=== PATIENT | male | born 1965 | race Caucasian/White ===

== ENCOUNTER 2019-02-20 20:37 | Inpatient (IN) | payer OTHER ==
[~2019-02-20] VITALS: Ht 154.9 cm; Wt 58.5 kg
[2019-02-20 21:00] VITALS: BP 136/78; PULSE 18; RESP 18
[2019-02-20 21:30] VITALS: Ht 154.9 cm; Wt 58.5 kg
[2019-02-20] MEDS ORDERED: HYDROCODONE/APAP (5/325) TAB PO PRN (21:30)
[2019-02-20] MEDS ORDERED: BISACODYL 10 MG SUPP PR PRN (23:00)
[2019-02-20] MEDS ORDERED: ACETAMINOPHEN 325 MG TAB PO PRN (23:00)
[2019-02-20] MEDS ORDERED: LACTULOSE 30ML CUP PO PRN (23:00)
[2019-02-20] MEDS ORDERED: MAGNESIUM HYDROXIDE 30ML CUP PO PRN (23:00)
[2019-02-21 02:00] VITALS: BP 140/79; PULSE 68; RESP 18
[2019-02-21] MEDS ORDERED: ONDANSETRON 4 MG INJ IV PRN (03:30)
[2019-02-21] MEDS ORDERED: NITROGLYCERIN (SL) 0.4 MG TAB SL PRN (03:30)
[2019-02-21 07:00] VITALS: BP 133/63; PULSE 57; RESP 18
[2019-02-21] MEDS: ATORVASTATIN 80 MG TAB PO SCH (08:07)
[2019-02-21] MEDS: AL HYDROX/MG HYDROX/SIMETH 30 ML CUP PO SCH ×4 (08:07→21:27)
[2019-02-21] MEDS: ASPIRIN (EC) 81 MG TAB PO SCH (08:08)
[2019-02-21] MEDS: FLUOXETINE 20 MG CAP PO SCH (08:08)
[2019-02-21] MEDS: DOCUSATE SODIUM 100 MG CAP PO SCH ×2 (08:08→21:27)
[2019-02-21] MEDS: LOSARTAN 50 MG TAB PO SCH (08:11)
[2019-02-21] MEDS: NICOTINE (14 MG/24 HR) PATCH TRANSDERM SCH (08:12)
[2019-02-21] MEDS: POLYETHYLENE GLYCOL 17 GM PACKET PO SCH (08:12)
[2019-02-21] MEDS: AMLODIPINE 5 MG TAB PO SCH (08:13)
[2019-02-21 14:00] VITALS: BP 140/72; PULSE 59; RESP 18
[2019-02-21 19:35] VITALS: BP 127/67; PULSE 59; RESP 18
[2019-02-21] MEDS: FAMOTIDINE 20 MG TAB PO SCH (21:27)
[2019-02-21] MEDS: SENNA TAB PO SCH (21:28)
[2019-02-22 02:19] VITALS: BP 131/69; PULSE 61; RESP 18
[2019-02-22 07:00] VITALS: BP 126/67; PULSE 55; RESP 18
[2019-02-22] MEDS: AL HYDROX/MG HYDROX/SIMETH 30 ML CUP PO SCH ×4 (07:35→20:24)
[2019-02-22] MEDS: FLUOXETINE 20 MG CAP PO SCH (08:19)
[2019-02-22] MEDS: FAMOTIDINE 20 MG TAB PO SCH ×2 (08:19→20:24)
[2019-02-22] MEDS: ATORVASTATIN 80 MG TAB PO SCH (08:20)
[2019-02-22] MEDS: ASPIRIN (EC) 81 MG TAB PO SCH (08:20)
[2019-02-22] MEDS: LOSARTAN 50 MG TAB PO SCH (08:20)
[2019-02-22] MEDS: DOCUSATE SODIUM 100 MG CAP PO SCH ×2 (08:20→20:26)
[2019-02-22] MEDS: POLYETHYLENE GLYCOL 17 GM PACKET PO SCH (08:21)
[2019-02-22] MEDS: AMLODIPINE 5 MG TAB PO SCH (08:21)
[2019-02-22] MEDS: NICOTINE (14 MG/24 HR) PATCH TRANSDERM SCH (08:23)
[2019-02-22 14:00] VITALS: BP 124/80; PULSE 60; RESP 18
[2019-02-22 19:16] VITALS: BP 128/77; PULSE 65; RESP 18
[2019-02-22] MEDS: SENNA TAB PO SCH (20:26)
[2019-02-23 02:19] VITALS: BP 132/68; PULSE 62; RESP 18
[2019-02-23 07:00] VITALS: BP 119/70; PULSE 66; RESP 18
[2019-02-23] MEDS: POLYETHYLENE GLYCOL 17 GM PACKET PO SCH (09:09)
[2019-02-23] MEDS: AL HYDROX/MG HYDROX/SIMETH 30 ML CUP PO SCH ×4 (09:09→21:13)
[2019-02-23] MEDS: FAMOTIDINE 20 MG TAB PO SCH ×2 (09:10→21:13)
[2019-02-23] MEDS: AMLODIPINE 5 MG TAB PO SCH (09:10)
[2019-02-23] MEDS: FLUOXETINE 20 MG CAP PO SCH (09:10)
[2019-02-23] MEDS: ASPIRIN (EC) 81 MG TAB PO SCH (09:10)
[2019-02-23] MEDS: LOSARTAN 50 MG TAB PO SCH (09:10)
[2019-02-23] MEDS: DOCUSATE SODIUM 100 MG CAP PO SCH ×2 (09:11→21:00)
[2019-02-23] MEDS: ATORVASTATIN 80 MG TAB PO SCH (09:11)
[2019-02-23] MEDS: NICOTINE (14 MG/24 HR) PATCH TRANSDERM SCH (09:12)
[2019-02-23 14:00] VITALS: BP 165/79; PULSE 69; RESP 18
[2019-02-23 19:34] VITALS: BP 161/79; PULSE 80; RESP 18
[2019-02-23] MEDS: SENNA TAB PO SCH (21:00)
[2019-02-23] MEDS: CIPROFLOXACIN 500 MG TAB PO SCH (23:53)
[2019-02-24 02:00] VITALS: BP 142/72; PULSE 67; RESP 18
[2019-02-24] MEDS: CIPROFLOXACIN 500 MG TAB PO SCH (06:16)
[2019-02-24 07:30] VITALS: BP 108/59; PULSE 82; RESP 18
[2019-02-24] MEDS: AL HYDROX/MG HYDROX/SIMETH 30 ML CUP PO SCH ×4 (08:04→20:09)
[2019-02-24] MEDS: LOSARTAN 50 MG TAB PO SCH (08:07)
[2019-02-24] MEDS: AMLODIPINE 5 MG TAB PO SCH (08:08)
[2019-02-24] MEDS: DOCUSATE SODIUM 100 MG CAP PO SCH ×2 (08:10→20:09)
[2019-02-24] MEDS: ASPIRIN (EC) 81 MG TAB PO SCH (08:16)
[2019-02-24] MEDS: ATORVASTATIN 80 MG TAB PO SCH (08:16)
[2019-02-24] MEDS: FAMOTIDINE 20 MG TAB PO SCH ×2 (08:16→20:09)
[2019-02-24] MEDS: FLUOXETINE 20 MG CAP PO SCH (08:16)
[2019-02-24] MEDS: NICOTINE (14 MG/24 HR) PATCH TRANSDERM SCH (08:17)
[2019-02-24] MEDS ORDERED: POLYETHYLENE GLYCOL 17 GM PACKET PO PRN (09:00)
[2019-02-24] MEDS ORDERED: PIPER-TAZO 3.375 GM IV (PMX) 100 ML IVPB SCH (12:30)
[2019-02-24] MEDS: TOLTERODINE (SR) 4 MG CAP PO SCH (12:51)
[2019-02-24] MEDS: CEFTRIAXONE 1 GM/NS 50 ML IVPB SCH (13:06)
[2019-02-24 14:00] VITALS: BP 112/66; PULSE 82; RESP 18
[2019-02-24 19:41] VITALS: BP 128/72; PULSE 83; RESP 18
[2019-02-24] MEDS: SENNA TAB PO SCH (20:09)
[2019-02-25 02:54] VITALS: BP 127/74; PULSE 73; RESP 18
[2019-02-25 07:00] VITALS: BP 119/69; PULSE 76; RESP 18
[2019-02-25] MEDS: AL HYDROX/MG HYDROX/SIMETH 30 ML CUP PO SCH ×4 (08:22→21:02)
[2019-02-25] MEDS: DOCUSATE SODIUM 100 MG CAP PO SCH ×2 (09:00→21:00)
[2019-02-25] MEDS: TOLTERODINE (SR) 4 MG CAP PO SCH (09:02)
[2019-02-25] MEDS: ASPIRIN (EC) 81 MG TAB PO SCH (09:02)
[2019-02-25] MEDS: LOSARTAN 50 MG TAB PO SCH (09:02)
[2019-02-25] MEDS: AMLODIPINE 5 MG TAB PO SCH (09:02)
[2019-02-25] MEDS: ATORVASTATIN 80 MG TAB PO SCH (09:03)
[2019-02-25] MEDS: FAMOTIDINE 20 MG TAB PO SCH ×2 (09:03→21:02)
[2019-02-25] MEDS: FLUOXETINE 20 MG CAP PO SCH (09:03)
[2019-02-25] MEDS: NICOTINE (14 MG/24 HR) PATCH TRANSDERM SCH (09:04)
[2019-02-25] MEDS: CEFTRIAXONE 1 GM/NS 50 ML IVPB SCH (12:51)
[2019-02-25 14:00] VITALS: BP 116/63; PULSE 83; RESP 18
[2019-02-25 20:00] VITALS: BP 120/68; PULSE 76; RESP 18
[2019-02-25] MEDS: SENNA TAB PO SCH (21:00)
[2019-02-26 02:00] VITALS: BP 113/60; PULSE 71; RESP 18
[2019-02-26] MEDS: AL HYDROX/MG HYDROX/SIMETH 30 ML CUP PO SCH ×4 (06:48→21:00)
[2019-02-26 07:00] VITALS: BP 123/72; PULSE 64; RESP 18
[2019-02-26] MEDS: FLUOXETINE 20 MG CAP PO SCH (08:40)
[2019-02-26] MEDS: NICOTINE (14 MG/24 HR) PATCH TRANSDERM SCH (08:40)
[2019-02-26] MEDS: FAMOTIDINE 20 MG TAB PO SCH ×2 (08:40→20:35)
[2019-02-26] MEDS: TOLTERODINE (SR) 4 MG CAP PO SCH (08:40)
[2019-02-26] MEDS: ASPIRIN (EC) 81 MG TAB PO SCH (08:41)
[2019-02-26] MEDS: AMLODIPINE 5 MG TAB PO SCH (08:41)
[2019-02-26] MEDS: LOSARTAN 50 MG TAB PO SCH (08:41)
[2019-02-26] MEDS: DOCUSATE SODIUM 100 MG CAP PO SCH ×2 (08:42→21:00)
[2019-02-26] MEDS: CEFTRIAXONE 1 GM/NS 50 ML IVPB SCH (12:49)
[2019-02-26 14:00] VITALS: BP 104/55; PULSE 83; RESP 18
[2019-02-26 20:00] VITALS: BP 136/71; PULSE 77; RESP 18
[2019-02-26] MEDS: SENNA TAB PO SCH (21:00)
[2019-02-27 02:25] VITALS: BP 132/60; PULSE 62; RESP 18
[2019-02-27 07:00] VITALS: BP_SYST 129; BP_SYST 157; BP_DIAS 67; BP_DIAS 70; PULSE 62; RESP 18
[2019-02-27] MEDS: AL HYDROX/MG HYDROX/SIMETH 30 ML CUP PO SCH ×4 (07:05→20:22)
[2019-02-27] MEDS: DOCUSATE SODIUM 100 MG CAP PO SCH ×2 (08:33→20:22)
[2019-02-27 08:44] VITALS: BP 124/72; PULSE 67; RESP 18
[2019-02-27] MEDS: TOLTERODINE (SR) 4 MG CAP PO SCH (08:51)
[2019-02-27] MEDS: LOSARTAN 50 MG TAB PO SCH (08:51)
[2019-02-27] MEDS: FLUOXETINE 20 MG CAP PO SCH (08:51)
[2019-02-27] MEDS: FAMOTIDINE 20 MG TAB PO SCH ×2 (08:52→20:21)
[2019-02-27] MEDS: MULTIVITAMINS THERAPEUTIC TAB PO SCH (08:52)
[2019-02-27] MEDS: ASPIRIN (EC) 81 MG TAB PO SCH (08:52)
[2019-02-27] MEDS: AMLODIPINE 5 MG TAB PO SCH (08:52)
[2019-02-27] MEDS: NICOTINE (14 MG/24 HR) PATCH TRANSDERM SCH (08:52)
[2019-02-27] MEDS: CEFTRIAXONE 1 GM/NS 50 ML IVPB SCH (12:33)
[2019-02-27 14:00] VITALS: BP 127/74; PULSE 88; RESP 18
[2019-02-27 19:23] VITALS: BP 128/70; PULSE 77; RESP 18
[2019-02-27] MEDS: SENNA TAB PO SCH (20:22)
[2019-02-28 03:14] VITALS: BP 125/68; PULSE 82; RESP 18
[2019-02-28] MEDS: AL HYDROX/MG HYDROX/SIMETH 30 ML CUP PO SCH ×4 (07:05→20:12)
[2019-02-28 08:03] VITALS: BP 119/68; PULSE 62; RESP 18
[2019-02-28] MEDS: NICOTINE (14 MG/24 HR) PATCH TRANSDERM SCH (08:46)
[2019-02-28] MEDS: FAMOTIDINE 20 MG TAB PO SCH ×2 (08:47→20:03)
[2019-02-28] MEDS: FLUOXETINE 20 MG CAP PO SCH (08:47)
[2019-02-28] MEDS: ASPIRIN (EC) 81 MG TAB PO SCH (08:47)
[2019-02-28] MEDS: AMLODIPINE 5 MG TAB PO SCH (08:47)
[2019-02-28] MEDS: MULTIVITAMINS THERAPEUTIC TAB PO SCH (08:47)
[2019-02-28] MEDS: LOSARTAN 50 MG TAB PO SCH (08:48)
[2019-02-28] MEDS: DOCUSATE SODIUM 100 MG CAP PO SCH ×2 (08:48→20:12)
[2019-02-28] MEDS: CEFTRIAXONE 1 GM/NS 50 ML IVPB SCH (12:36)
[2019-02-28 14:00] VITALS: BP 128/65; PULSE 71; RESP 17
[2019-02-28 19:17] VITALS: BP 124/69; PULSE 75; RESP 18
[2019-02-28] MEDS: ATORVASTATIN 10 MG TAB PO SCH (20:03)
[2019-02-28] MEDS: SENNA TAB PO SCH (20:12)
[2019-03-01 02:00] VITALS: BP 130/72; PULSE 72; RESP 18
[2019-03-01] MEDS: AL HYDROX/MG HYDROX/SIMETH 30 ML CUP PO SCH ×4 (05:56→20:36)
[2019-03-01 07:30] VITALS: BP 129/75; PULSE 64; RESP 18
[2019-03-01] MEDS: NICOTINE (14 MG/24 HR) PATCH TRANSDERM SCH (08:13)
[2019-03-01] MEDS: AMLODIPINE 5 MG TAB PO SCH (08:13)
[2019-03-01] MEDS: FLUOXETINE 20 MG CAP PO SCH (08:14)
[2019-03-01] MEDS: ASPIRIN (EC) 81 MG TAB PO SCH (08:14)
[2019-03-01] MEDS: MULTIVITAMINS THERAPEUTIC TAB PO SCH (08:14)
[2019-03-01] MEDS: FAMOTIDINE 20 MG TAB PO SCH ×2 (08:14→20:34)
[2019-03-01] MEDS: DOCUSATE SODIUM 100 MG CAP PO SCH ×2 (08:15→20:36)
[2019-03-01] MEDS: LOSARTAN 50 MG TAB PO SCH (08:17)
[2019-03-01] MEDS: CEFTRIAXONE 1 GM/NS 50 ML IVPB SCH (13:57)
[2019-03-01 14:00] VITALS: BP 132/75; PULSE 78; RESP 20
[2019-03-01 19:20] VITALS: BP 125/68; RESP 18
[2019-03-01] MEDS: ATORVASTATIN 10 MG TAB PO SCH (20:34)
[2019-03-01] MEDS: SENNA TAB PO SCH (20:36)
[2019-03-02 02:00] VITALS: BP 129/63; RESP 18
[2019-03-02 02:41] VITALS: BP 123/69; RESP 18
[2019-03-02] MEDS: AL HYDROX/MG HYDROX/SIMETH 30 ML CUP PO SCH ×4 (05:36→20:17)
[2019-03-02 07:30] VITALS: BP 119/68; PULSE 56; RESP 18
[2019-03-02] MEDS: DOCUSATE SODIUM 100 MG CAP PO SCH ×2 (08:35→20:17)
[2019-03-02] MEDS: NICOTINE (14 MG/24 HR) PATCH TRANSDERM SCH (09:55)
[2019-03-02] MEDS: FAMOTIDINE 20 MG TAB PO SCH ×2 (09:55→20:16)
[2019-03-02] MEDS: FLUOXETINE 20 MG CAP PO SCH (09:55)
[2019-03-02] MEDS: MULTIVITAMINS THERAPEUTIC TAB PO SCH (09:55)
[2019-03-02] MEDS: AMLODIPINE 5 MG TAB PO SCH (09:56)
[2019-03-02] MEDS: LOSARTAN 50 MG TAB PO SCH (09:56)
[2019-03-02] MEDS: ASPIRIN (EC) 81 MG TAB PO SCH (09:56)
[2019-03-02] MEDS: CEFTRIAXONE 1 GM/NS 50 ML IVPB SCH (12:51)
[2019-03-02 14:00] VITALS: BP 112/70; PULSE 64; RESP 18
[2019-03-02 19:14] VITALS: BP 122/62; PULSE 62; RESP 18
[2019-03-02] MEDS: ATORVASTATIN 10 MG TAB PO SCH (20:16)
[2019-03-02] MEDS: SENNA TAB PO SCH (20:17)
[2019-03-03 02:00] VITALS: BP 117/66; PULSE 63; RESP 18
[2019-03-03] MEDS: AL HYDROX/MG HYDROX/SIMETH 30 ML CUP PO SCH ×4 (07:05→20:50)
[2019-03-03 07:30] VITALS: BP 126/73; PULSE 60; RESP 18
[2019-03-03] MEDS: DOCUSATE SODIUM 100 MG CAP PO SCH ×2 (08:43→20:51)
[2019-03-03] MEDS: FAMOTIDINE 20 MG TAB PO SCH ×2 (08:50→20:51)
[2019-03-03] MEDS: FLUOXETINE 20 MG CAP PO SCH (08:50)
[2019-03-03] MEDS: ASPIRIN (EC) 81 MG TAB PO SCH (08:50)
[2019-03-03] MEDS: LOSARTAN 50 MG TAB PO SCH (08:50)
[2019-03-03] MEDS: AMLODIPINE 5 MG TAB PO SCH (08:51)
[2019-03-03] MEDS: NICOTINE (14 MG/24 HR) PATCH TRANSDERM SCH (08:52)
[2019-03-03] MEDS: MULTIVITAMINS THERAPEUTIC TAB PO SCH (08:55)
[2019-03-03 14:00] VITALS: BP 113/65; PULSE 68; RESP 20
[2019-03-03 19:54] VITALS: BP 114/70; PULSE 55; RESP 18
[2019-03-03] MEDS: ATORVASTATIN 10 MG TAB PO SCH (20:50)
[2019-03-03] MEDS: SENNA TAB PO SCH (20:50)
[2019-03-04 03:17] VITALS: BP 114/64; PULSE 56; RESP 20
[2019-03-04 07:00] VITALS: BP 106/65; PULSE 50; RESP 18
[2019-03-04] MEDS: AL HYDROX/MG HYDROX/SIMETH 30 ML CUP PO SCH ×4 (07:05→20:20)
[2019-03-04] MEDS: DOCUSATE SODIUM 100 MG CAP PO SCH ×2 (09:00→20:20)
[2019-03-04] MEDS: LOSARTAN 50 MG TAB PO SCH ×2 (09:00→13:11)
[2019-03-04] MEDS: AMLODIPINE 5 MG TAB PO SCH ×2 (09:00→13:10)
[2019-03-04] MEDS: NICOTINE (14 MG/24 HR) PATCH TRANSDERM SCH (09:19)
[2019-03-04 09:20] VITALS: BP 106/65; PULSE 63; RESP 18
[2019-03-04] MEDS: ASPIRIN (EC) 81 MG TAB PO SCH (09:20)
[2019-03-04] MEDS: MULTIVITAMINS THERAPEUTIC TAB PO SCH (09:20)
[2019-03-04] MEDS: FLUOXETINE 20 MG CAP PO SCH (09:21)
[2019-03-04] MEDS: FAMOTIDINE 20 MG TAB PO SCH ×2 (09:21→20:18)
[2019-03-04 12:45] VITALS: BP 126/65; PULSE 62; RESP 18
[2019-03-04 14:00] VITALS: BP 125/66; PULSE 71; RESP 18
[2019-03-04 20:00] VITALS: BP 128/79; PULSE 82; RESP 18
[2019-03-04] MEDS: ATORVASTATIN 10 MG TAB PO SCH (20:18)
[2019-03-04] MEDS: SENNA TAB PO SCH (21:00)
[2019-03-05 02:00] VITALS: BP 115/59; PULSE 56; RESP 18
[2019-03-05] MEDS: AL HYDROX/MG HYDROX/SIMETH 30 ML CUP PO SCH ×2 (07:05→11:30)
[2019-03-05 07:30] VITALS: BP 110/60; PULSE 58; RESP 20
[2019-03-05] MEDS: NICOTINE (14 MG/24 HR) PATCH TRANSDERM SCH (08:31)
[2019-03-05] MEDS: ASPIRIN (EC) 81 MG TAB PO SCH (08:32)
[2019-03-05] MEDS: LOSARTAN 50 MG TAB PO SCH (08:32)
[2019-03-05] MEDS: FAMOTIDINE 20 MG TAB PO SCH ×2 (08:32→20:30)
[2019-03-05] MEDS: FLUOXETINE 20 MG CAP PO SCH (08:33)
[2019-03-05] MEDS: AMLODIPINE 5 MG TAB PO SCH (08:33)
[2019-03-05] MEDS: DOCUSATE SODIUM 100 MG CAP PO SCH ×2 (08:33→20:32)
[2019-03-05] MEDS: MULTIVITAMINS THERAPEUTIC TAB PO SCH (08:33)
[2019-03-05 14:00] VITALS: BP 103/66; PULSE 69; RESP 18
[2019-03-05] MEDS ORDERED: AL HYDROX/MG HYDROX/SIMETH 30 ML CUP PO PRN (14:00)
[2019-03-05 20:00] VITALS: BP 127/68; PULSE 61; RESP 18
[2019-03-05] MEDS: ATORVASTATIN 10 MG TAB PO SCH (20:30)
[2019-03-05] MEDS: SENNA TAB PO SCH (20:32)
[2019-03-06 02:00] VITALS: BP 108/55; PULSE 67; RESP 18
[2019-03-06 07:00] VITALS: BP 116/55; PULSE 55; RESP 18
[2019-03-06] MEDS: DOCUSATE SODIUM 100 MG CAP PO SCH ×2 (08:22→20:43)
[2019-03-06] MEDS: MULTIVITAMINS THERAPEUTIC TAB PO SCH (09:48)
[2019-03-06] MEDS: FLUOXETINE 20 MG CAP PO SCH (09:48)
[2019-03-06] MEDS: FAMOTIDINE 20 MG TAB PO SCH ×2 (09:48→20:42)
[2019-03-06] MEDS: ASPIRIN (EC) 81 MG TAB PO SCH (09:48)
[2019-03-06] MEDS: AMLODIPINE 5 MG TAB PO SCH (09:48)
[2019-03-06] MEDS: LOSARTAN 50 MG TAB PO SCH (09:49)
[2019-03-06] MEDS: NICOTINE (14 MG/24 HR) PATCH TRANSDERM SCH (09:51)
[2019-03-06 14:00] VITALS: BP 126/62; PULSE 66; RESP 18
[2019-03-06 20:17] VITALS: BP 100/65; PULSE 64; RESP 18
[2019-03-06] MEDS: ATORVASTATIN 10 MG TAB PO SCH (20:40)
[2019-03-06] MEDS: SENNA TAB PO SCH (20:43)
[2019-03-07 02:28] VITALS: BP 103/58; PULSE 56; RESP 18
[2019-03-07 07:30] VITALS: BP 101/58; PULSE 54; RESP 20
[2019-03-07] MEDS: DOCUSATE SODIUM 100 MG CAP PO SCH (08:20)
[2019-03-07] MEDS: LOSARTAN 50 MG TAB PO SCH (09:00)
[2019-03-07] MEDS: MULTIVITAMINS THERAPEUTIC TAB PO SCH (09:11)
[2019-03-07] MEDS: FLUOXETINE 20 MG CAP PO SCH (09:11)
[2019-03-07] MEDS: ASPIRIN (EC) 81 MG TAB PO SCH (09:11)
[2019-03-07] MEDS: NICOTINE (14 MG/24 HR) PATCH TRANSDERM SCH (09:11)
[2019-03-07] MEDS: FAMOTIDINE 20 MG TAB PO SCH ×2 (09:11→20:27)
[2019-03-07] MEDS ORDERED: DOCUSATE SODIUM 100 MG CAP PO PRN (09:30)
[2019-03-07] MEDS ORDERED: SENNA TAB PO PRN (09:30)
[2019-03-07 14:00] VITALS: BP 117/74; PULSE 65; RESP 18
[2019-03-07 20:00] VITALS: BP 123/71; PULSE 68; RESP 18
[2019-03-07] MEDS: ATORVASTATIN 10 MG TAB PO SCH (20:27)
[2019-03-08 01:58] VITALS: BP 123/68; PULSE 56; RESP 18
[2019-03-08 07:30] VITALS: BP 125/75; PULSE 59; RESP 20
[2019-03-08] MEDS: ASPIRIN (EC) 81 MG TAB PO SCH (08:36)
[2019-03-08] MEDS: NICOTINE (14 MG/24 HR) PATCH TRANSDERM SCH (08:36)
[2019-03-08] MEDS: FAMOTIDINE 20 MG TAB PO SCH (08:36)
[2019-03-08] MEDS: FLUOXETINE 20 MG CAP PO SCH (08:36)
[2019-03-08] MEDS: MULTIVITAMINS THERAPEUTIC TAB PO SCH (08:36)
[2019-03-08] MEDS: LOSARTAN 50 MG TAB PO SCH (08:37)
[2019-03-08 14:00] VITALS: BP 124/66; PULSE 64; RESP 18
== END 2019-03-08 18:09 | disposition home health service (06) | DRG 57 ==
LOC: VRC 20:37
PROVIDERS: ADMIT Physical Medicine & Rehabilitation; ATTEND Internal Medicine Nephrology
DX: I69.854 Hemiplegia and hemiparesis following other cerebrovascular disease affecting left non-dominant side (principal); N39.0 Urinary tract infection, site not specified; F17.200 Nicotine dependence, unspecified, uncomplicated; I10 Essential (primary) hypertension; I65.02 Occlusion and stenosis of left vertebral artery; F10.20 Alcohol dependence, uncomplicated; Z79.82 Long term (current) use of aspirin; E78.5 Hyperlipidemia, unspecified; Z74.09 Other reduced mobility; Z91.19 Patient's noncompliance with other medical treatment and regimen; E80.7 Disorder of bilirubin metabolism, unspecified; B96.20 Unspecified Escherichia coli [E. coli] as the cause of diseases classified elsewhere; Z72.0 Tobacco use; Z72.89 Other problems related to lifestyle; R50.9 Fever, unspecified; B96.81 Helicobacter pylori [H. pylori] as the cause of diseases classified elsewhere; R97.20 Elevated prostate specific antigen [PSA]; R33.9 Retention of urine, unspecified
CPT/HCPCS: 71045; 76705; 76856; 80048; 80053; 80076; 81003; 83605; 83735; 84100; 84153; 84154; 85025; 87081; 87086; 92507; 92523; 97110; 97112; 97116; 97150; 97163; 97167; 97530; 97535; 97542; A4310; J0696; J2543; L1820; L2270; L2275; L2820; L3675